=== PATIENT | male | born 1960 | race Caucasian/White ===

== ENCOUNTER 2023-05-31 09:04 | Inpatient (IN) | payer MEDICAID ==
[2023-05-31] VITALS (31 sets, daily range): BP systolic 83–112; BP diastolic 42–91; PULSE 65–118; RESP 0–25; TEMP 97.6–98.3
[~2023-05-31] VITALS: Ht 172.7 cm; Wt 81.2 kg
[2023-05-31 09:43] LABS: BASOPHILS % 0.5 % (0.0-2.0); DIFFERENTIAL COMMENT 0; EOSINOPHILS % 0.3 % (0.0-5.0); LYMPHOCYTES % 35.1 % (20.0-50.0); MEAN CORPUSCULAR HEMOGLOBIN 30.7 pg (28.0-32.0); MEAN CORPUSCULAR HGB CONC 34.8 g/dL (31.0-37.0); MEAN CORPUSCULAR VOLUME 88.2 fL (80.0-94.0); MEAN PLATELET VOLUME 8.6 fl (7.4-10.4); MONOCYTES % 7.1 % (2.0-8.0); PLATELET 268 x1000/uL (130-400); RED CELL DISTRIBUTION WIDTH 15.8 % (11.6-14.6); WHITE BLOOD COUNT 9.3 x1000/uL (4.5-11.0)
[2023-05-31 09:46] LABS: INR 1.1; PROTHROMBIN TIME 12.6 sec (9.6-11.0)
[2023-05-31] MEDS: SODIUM CHLORIDE 0.9% 1000ML BAG (SEPSIS BOLUS) IV ONE (09:51)
[2023-05-31] MEDS: VANCOMYCIN 1G PREMIX 200 ML IV ONE (09:56)
[2023-05-31] MEDS: PIPERACILLIN/TAZO 3.375G/50ML 50 ML IV ONE (09:56)
[2023-05-31 10:04] LABS: ALANINE AMINOTRANSFERASE 13 IU/L (10-49); ALBUMIN 2.4 g/dL (3.2-4.8); ASPARTATE AMINOTRANSFERASE 21 IU/L (<34); BILIRUBIN TOTAL 0.2 mg/dL (0.1-1.0); CARBON DIOXIDE 21 mEq/L (21-32); CHLORIDE 109 mEq/L (98-107); CREATININE 1.8 mg/dL (0.6-1.3); POTASSIUM 3.9 mEq/L (3.5-5.1); PROTEIN TOTAL 4.9 g/dL (6.0-8.3); SODIUM 140 mEq/L (136-145); TROPONIN I HIGH SENSITIVITY 9 ng/L (3.0-53); UREA NITROGEN BLOOD 35 mg/dL (9-23)
[2023-05-31 10:10] LABS: LACTIC ACID 6.7 mmol/L (0.4-2.0)
[2023-05-31 10:11] LABS: GLUCOSE 419 mg/dL (70-105)
[2023-05-31 10:22] LABS: HEMOGLOBIN. 4.9 g/dL (14.0-18.0)
[2023-05-31 10:23] LABS: HEMATOCRIT. 14.1 % (42.0-52.0)
[2023-05-31] MEDS: NOREPINEPHRINE 8MG/250ML PMX 250 ML IV STA ×2 (10:30→12:59)
[2023-05-31] MEDS: ONDANSETRON HCL 4MG/2ML INJ IV ONE (11:43)
[2023-05-31] MEDS: ACETAMINOPHEN 325MG TABLET PO ONE (11:44)
[2023-05-31] MEDS: OXYCODONE HCL/ACETAMINOPHEN 5/325MG TABLET PO ONE (12:14)
[2023-05-31] MEDS ORDERED: AMIODARONE HCL 150 MG in DEXT 5% WATER 100 ML IV ONE (12:30)
[2023-05-31] MEDS: AMIODARONE 150MG/100ML PREMIX 100 ML IV NR (12:45)
[2023-05-31] MEDS ORDERED: PHENYLEPHRINE 50MG/250ML PMX 250 ML IV PRN (13:15)
[2023-05-31] MEDS ORDERED: IPRATROPIUM/ALBUTEROL 0.5-3(2.5)MG/3ML NEB HHN PRN (15:45)
[2023-05-31] MEDS ORDERED: NOREPINEPHRINE 8MG/250ML PMX 250 ML IV ONE (15:59)
[2023-05-31] MEDS: IOHEXOL-350 100 ML BOTTLE ONE (17:19)
[2023-05-31] MEDS ORDERED: NALOXONE HCL 0.4MG/ML VIAL IV PRN (18:00)
[2023-05-31] MEDS: PANTOPRAZOLE SODIUM 40 MG/VIAL IV SCH (18:56)
[2023-05-31] MEDS: HYDROCODONE/ACETAMINOPHEN 10/325MG TABLET PO PRN (18:57)
[2023-05-31] MEDS: ONDANSETRON HCL 4MG/2ML INJ IV PRN (19:23)
[2023-05-31] MEDS: MORPHINE SULFATE 2 MG/ML CPJ (NOT FOR IM USE) IV NR (19:24)
[2023-05-31 21:08] LABS: DIFFERENTIAL COMMENT 1; HEMATOCRIT. 28.3 % (42.0-52.0); HEMOGLOBIN. 9.3 g/dL (14.0-18.0); MEAN CORPUSCULAR HEMOGLOBIN 29.7 pg (28.0-32.0); MEAN CORPUSCULAR HGB CONC 32.9 g/dL (31.0-37.0); MEAN CORPUSCULAR VOLUME 90.3 fL (80.0-94.0); MEAN PLATELET VOLUME 9.8 fl (7.4-10.4); PLATELET 168 x1000/uL (130-400); RED BLOOD CELL COUNT 3.14 mill/uL (4.7-6.1); RED CELL DISTRIBUTION WIDTH 15.7 % (11.6-14.6); WHITE BLOOD COUNT 25.3 x1000/uL (4.5-11.0)
[2023-05-31] MEDS: PHENYLEPHRINE 50MG/250ML PMX 250 ML IV PRN (21:24)
[2023-05-31 21:36] LABS: PLATELET ESTIMATE NORMAL
[2023-05-31] MEDS ORDERED: VASOPRESSIN 20 UNIT in SODIUM CHLORIDE 0.9% 99 ML IV SCH (21:45)
[2023-05-31] MEDS: PIPERACILLIN/TAZO 3.375G/50ML 50 ML IV SCH (22:00)
[2023-05-31] MEDS: BLOOD SUGAR DIAGNOSTIC STRIP TEST SCH (22:41)
[2023-05-31] MEDS: SODIUM CHLORIDE 0.9% 1,000 ML IV SCH (22:42)
[2023-05-31] MEDS: INSULIN LISPRO 100 UNITS/ML SUBCUT NR (22:51)
[2023-05-31] MEDS: INSULIN GLARGINE 100 UNITS/ML SUBCUT SCH (22:51)
[2023-05-31] MEDS: OCTREOTIDE 1,000 MCG in SODIUM CHLORIDE 0.9% 98 ML IV SCH (23:00)
[2023-05-31] MEDS: PANTOPRAZOLE 80 MG in SODIUM CHLORIDE 0.9% 100 ML IV SCH (23:02)
[2023-06-01] VITALS (114 sets, daily range): BP systolic 76–157; BP diastolic 39–92; PULSE 67–127; RESP 0–34; TEMP 97.7–99.2
[2023-06-01] MEDS: INSULIN LISPRO 100 UNITS/ML SUBCUT SCH
[2023-06-01 00:06] LABS: BASOPHILS % 0.1 % (0.0-2.0); HEMATOCRIT. 24.2 % (42.0-52.0); HEMOGLOBIN. 7.7 g/dL (14.0-18.0); LYMPHOCYTES % 7.3 % (20.0-50.0); MEAN CORPUSCULAR HEMOGLOBIN 28.8 pg (28.0-32.0); MEAN CORPUSCULAR HGB CONC 31.8 g/dL (31.0-37.0); MEAN CORPUSCULAR VOLUME 90.5 fL (80.0-94.0); MEAN PLATELET VOLUME 9.7 fl (7.4-10.4); MONOCYTES % 4.4 % (2.0-8.0); NEUTROPHILS % 88.2 % (40.0-76.0); PLATELET 178 x1000/uL (130-400); RED BLOOD CELL COUNT 2.68 mill/uL (4.7-6.1); RED CELL DISTRIBUTION WIDTH 15.3 % (11.6-14.6); WHITE BLOOD COUNT 20.1 x1000/uL (4.5-11.0)
[2023-06-01 00:21] LABS: ALANINE AMINOTRANSFERASE 24 IU/L (10-49); ALBUMIN 2.4 g/dL (3.2-4.8); ASPARTATE AMINOTRANSFERASE 43 IU/L (<34); BILIRUBIN TOTAL 0.5 mg/dL (0.1-1.0); CALCIUM 6.5 mg/dL (8.7-10.4); CARBON DIOXIDE 17 mEq/L (21-32); CHLORIDE 110 mEq/L (98-107); CREATININE 2.2 mg/dL (0.6-1.3); PROTEIN TOTAL 4.7 g/dL (6.0-8.3); SODIUM 138 mEq/L (136-145); UREA NITROGEN BLOOD 51 mg/dL (9-23)
[2023-06-01 00:33] LABS: POTASSIUM 5.9 mEq/L (3.5-5.1)
[2023-06-01 00:35] LABS: GLUCOSE 594 mg/dL (70-105)
[2023-06-01] MEDS: SODIUM BICARBONATE 8.4% 1 MEQ/ML 50ML SYR IV NR (01:29)
[2023-06-01] MEDS: INSULIN REGULAR (HUMULIN R) 300UNITS/3ML VIAL IV NR (01:33)
[2023-06-01] MEDS: INSULIN LISPRO 100 UNITS/ML SUBCUT NR (01:33)
[2023-06-01] MEDS: MORPHINE SULFATE 2 MG/ML CPJ (NOT FOR IM USE) IV PRN (03:42)
[2023-06-01 08:46] LABS: HEMATOCRIT 21.4 % (42.0-52.0); HEMOGLOBIN 7.1 g/dL (14.0-18.0)
[2023-06-01] MEDS: VASOPRESSIN 20 UNIT in SODIUM CHLORIDE 0.9% 99 ML IV PRN (09:22)
[2023-06-01 09:27] LABS: LACTIC ACID 3.7 mmol/L (0.4-2.0)
[2023-06-01 09:35] LABS: CREATININE 2.2 mg/dL (0.6-1.3)
[2023-06-01] MEDS: NOREPINEPHRINE 8MG/250ML PMX 250 ML IV ONE (09:53)
[2023-06-01 09:55] LABS: BG BASE EXCESS -7.2 mmol/L (-2.0-2.0); BG CARBOXYHEMOGLOBIN 0.3 % (0.5-1.5); BG DEOXYHEMOGLOBIN 3.1 % (0.0-5.0); BG FRACTION INSPIRED OXYGEN 21; BG HCO3 ACT 17.5 mmol/L (22.0-26.0); BG METHEMOGLOBIN 0.7 % (0.0-1.5); BG OXYGEN SATURATION 96.9 % (92.0-98.5); BG OXYHEMOGLOBIN 95.9 % (94.0-97.0); BG PCO2 31.7 mmHg (35.0-45.0); BG PH 7.361 (7.350-7.450); BG PO2 107.9 mmHg (75.0-100.0); BG SAMPLE SITE RIGHT RADIAL; BG TOTAL HEMOGLOBIN 6.5 g/dL (12.0-18.0); BG VENT MODE ROOM AIR
[2023-06-01 09:56] LABS: CALCIUM 5.9 mg/dL (8.7-10.4)
[2023-06-01] MEDS: SODIUM CHLORIDE 0.9% 500 ML IV ONE (11:14)
[2023-06-01] MEDS: AMIODARONE 150MG/100ML PREMIX 100 ML IV NR (12:00)
[2023-06-01] MEDS ORDERED: SUCRALFATE 1 G/10 ML UDC PO SCH (12:00)
[2023-06-01 12:34] LABS: IRON 27 ug/dL (65-175); TOTAL IRON BINDING CAPACITY 149 ug/dl (250-425)
[2023-06-01 12:36] LABS: HEMATOCRIT 15.8 % (42.0-52.0); HEMOGLOBIN 5.1 g/dL (14.0-18.0)
[2023-06-01] MEDS: CALCIUM GLUCONATE 1GM PREMIX 50 ML IV NR (12:45)
[2023-06-01] MEDS: DIGOXIN 500MCG/2ML AMP IV NR (12:45)
[2023-06-01] MEDS: FENTANYL CITRATE/PF 50MCG/ML 2ML VIAL IV NR (12:54)
[2023-06-01] MEDS: SUCRALFATE 1G TABLET PO SCH (12:55)
[2023-06-01] MEDS: HUMAN PROTHROMBIN COMPLX (PCC) 500 UNITS VIAL IV NR (12:55)
[2023-06-01] MEDS: AMIODARONE HCL 900 MG in DEXT 5% WATER 482 ML IV SCH (12:57)
[2023-06-01 13:08] LABS: FERRITIN 113 ng/mL (22-322); FOLIC ACID (FOLATE) SERUM 9.11 ng/mL (>5.38)
[2023-06-01 13:15] LABS: VITAMIN B12 SERUM > 2000 pg/mL (211-911)
[2023-06-01 16:09] LABS: CLARITY URINE CLOUDY (CLEAR); COLOR URINE YELLOW (YELLOW); GLUCOSE URINE 1+ (NEGATIVE); KETONES URINE NEGATIVE (NEGATIVE); LEUKOCYTE ESTERASE URINE 2+ (NEGATIVE); NITRITE URINE NEGATIVE (NEGATIVE); OCCULT BLOOD URINE 2+ (NEGATIVE); PROTEIN URINE 1+ (NEGATIVE); SPECIFIC GRAVITY URINE 1.037 (1.005-1.030); UROBILINOGEN URINE 0.2 E.U./dL (0.2-1.0)
[2023-06-01 17:18] LABS: *AMPHETAMINES SCREEN URINE NEGATIVE (NEGATIVE); *BARBITURATES SCREEN URINE NEGATIVE (NEGATIVE); *BENZODIAZEPINES SCREEN URINE NEGATIVE (NEGATIVE); *COCAINE SCREEN URINE NEGATIVE (NEGATIVE); CANNABINOID URINE SCREEN NEGATIVE (NEGATIVE); ECSTASY MDMA SCREEN URINE NEGATIVE (NEGATIVE); METHADONE URINE SCREEN Neg (NEGATIVE); OPIATES URINE SCREEN PRESUMPTIVE POSITIVE (NEGATIVE); PHENCYCLIDINE URINE SCREEN NEGATIVE (NEGATIVE)
[2023-06-01 17:58] LABS: BACTERIA URINE 2+
[2023-06-01 17:59] LABS: SQUAMOUS EPITHELIAL CELL URINE FEW /lpf (RARE/1+); YEAST URINE 3+
[2023-06-01 18:00] LABS: WBC URINE 25-50 /hpf (0-2)
[2023-06-01] MEDS: SODIUM CHLORIDE 0.45% 1,000 ML IV SCH (18:01)
[2023-06-01] MEDS: OCTREOTIDE 1,000 MCG in SODIUM CHLORIDE 0.9% 98 ML IV SCH (18:03)
[2023-06-01 18:24] LABS: BG BASE EXCESS -7.9 mmol/L (-2.0-2.0); BG CARBOXYHEMOGLOBIN 0.3 % (0.5-1.5); BG DEOXYHEMOGLOBIN 2.9 % (0.0-5.0); BG FRACTION INSPIRED OXYGEN 21; BG METHEMOGLOBIN 0.2 % (0.0-1.5); BG OXYGEN SATURATION 97.1 % (92.0-98.5); BG OXYHEMOGLOBIN 96.6 % (94.0-97.0); BG PCO2 32.3 mmHg (35.0-45.0); BG PH 7.339 (7.350-7.450); BG PO2 102.1 mmHg (75.0-100.0); BG SAMPLE SITE LEFT RADIAL; BG TOTAL HEMOGLOBIN 9.8 g/dL (12.0-18.0); BG VENT MODE ROOM AIR
[2023-06-01] MEDS ORDERED: ONDANSETRON HCL 4MG/2ML INJ ONE (19:35)
[2023-06-01] MEDS ORDERED: ETOMIDATE 2MG/ML 10ML VIAL IV ONE (19:35)
[2023-06-01] MEDS ORDERED: DEXAMETHASONE 4MG/ML 1ML VIAL ONE (19:35)
[2023-06-01] MEDS ORDERED: EPHEDRINE SULFATE 50MG/ML VIAL ONE (20:05)
[2023-06-02] VITALS (97 sets, daily range): BP systolic 83–163; BP diastolic 36–147; PULSE 67–108; RESP 0–18; TEMP 97.8–98.5
[2023-06-02 01:14] LABS: HEMATOCRIT 28.3 % (42.0-52.0); HEMOGLOBIN 8.4 g/dL (14.0-18.0)
[2023-06-02 09:15] LABS: MEAN CORPUSCULAR HEMOGLOBIN 27.6 pg (28.0-32.0); MEAN CORPUSCULAR HGB CONC 32.7 g/dL (31.0-37.0); MEAN PLATELET VOLUME 9.1 fl (7.4-10.4); PLATELET 110 x1000/uL (130-400); RED BLOOD CELL COUNT 2.42 mill/uL (4.7-6.1); RED CELL DISTRIBUTION WIDTH 17.5 % (11.6-14.6); WHITE BLOOD COUNT 19.8 x1000/uL (4.5-11.0)
[2023-06-02 09:34] LABS: LACTIC ACID 2.2 mmol/L (0.4-2.0)
[2023-06-02 09:36] LABS: CARBON DIOXIDE 16 mEq/L (21-32); CHLORIDE 119 mEq/L (98-107); CREATINE KINASE 44 IU/L (46-171); GLUCOSE 299 mg/dL (70-105); PHOSPHORUS 4.3 mg/dL (2.5-4.9); POTASSIUM 5.1 mEq/L (3.5-5.1); SODIUM 147 mEq/L (136-145); UREA NITROGEN BLOOD 66 mg/dL (9-23)
[2023-06-02 09:56] LABS: DIFFERENTIAL COMMENT 1
[2023-06-02 09:58] LABS: MEAN CORPUSCULAR VOLUME 84.2 fL (80.0-94.0)
[2023-06-02 10:00] LABS: HEMATOCRIT. 20.4 % (42.0-52.0); HEMOGLOBIN. 6.7 g/dL (14.0-18.0)
[2023-06-02 10:24] LABS: ANISOCYTOSIS 1+; PLATELET ESTIMATE DECREASED
[2023-06-02] MEDS: SODIUM BICARBONATE 8.4% 1 MEQ/ML 50ML SYR IV NR (12:27)
[2023-06-02] MEDS: MAGNESIUM 2 G PREMIX 50 ML IV NR (13:44)
[2023-06-02] MEDS: CALCIUM GLUCONATE 1GM PREMIX 50 ML IV NR (13:46)
[2023-06-02 18:44] LABS: HEMATOCRIT 25.3 % (42.0-52.0); HEMOGLOBIN 8.1 g/dL (14.0-18.0)
[2023-06-03] VITALS (99 sets, daily range): BP systolic 90–157; BP diastolic 34–95; PULSE 57–86; RESP 0–21; TEMP 97.8–98.1
[2023-06-03 02:49] LABS: HEMATOCRIT 22.7 % (42.0-52.0); HEMOGLOBIN 7.3 g/dL (14.0-18.0)
[2023-06-03 06:51] LABS: CALCIUM 6.4 mg/dL (8.7-10.4); CARBON DIOXIDE 23 mEq/L (21-32); CHLORIDE 119 mEq/L (98-107); CREATININE 1.9 mg/dL (0.6-1.3); GLUCOSE 210 mg/dL (70-105); PHOSPHORUS 3.8 mg/dL (2.5-4.9); POTASSIUM 4.6 mEq/L (3.5-5.1); SODIUM 147 mEq/L (136-145); UREA NITROGEN BLOOD 54 mg/dL (9-23)
[2023-06-03 06:52] LABS: HEMATOCRIT. 21.4 % (42.0-52.0); HEMOGLOBIN. 7.1 g/dL (14.0-18.0); MEAN CORPUSCULAR HEMOGLOBIN 29.3 pg (28.0-32.0); MEAN CORPUSCULAR HGB CONC 33.1 g/dL (31.0-37.0); MEAN CORPUSCULAR VOLUME 88.4 fL (80.0-94.0); PLATELET 89 x1000/uL (130-400); RED BLOOD CELL COUNT 2.42 mill/uL (4.7-6.1); RED CELL DISTRIBUTION WIDTH 16.4 % (11.6-14.6); WHITE BLOOD COUNT 13.9 x1000/uL (4.5-11.0)
[2023-06-03 06:56] LABS: DIFFERENTIAL COMMENT 1
[2023-06-03 10:05] LABS: ANISOCYTOSIS 1+; NUCLEATED RED BLOOD CELLS 1 /100 WBC; PLATELET ESTIMATE DECREASED
[2023-06-03] MEDS ORDERED: MENTHOL/LANOLIN/CALAMINE/ZN OX OINT 71GM TOP PRN (15:30)
[2023-06-03] MEDS: FLUCONAZOLE 200 MG/100ML BAG 100 ML IV SCH (18:08)
[2023-06-03 20:54] LABS: HEMOGLOBIN 7.8 g/dL (14.0-18.0)
[2023-06-04] VITALS (70 sets, daily range): BP systolic 101–170; BP diastolic 37–118; PULSE 55–92; RESP 7–17; TEMP 97.6–98.6
[2023-06-04 02:52] LABS: BASOPHILS % 0.5 % (0.0-2.0); EOSINOPHILS % 0.5 % (0.0-5.0); HEMATOCRIT. 24.5 % (42.0-52.0); LYMPHOCYTES % 12.7 % (20.0-50.0); MEAN CORPUSCULAR HGB CONC 32.8 g/dL (31.0-37.0); MEAN CORPUSCULAR VOLUME 85.5 fL (80.0-94.0); MEAN PLATELET VOLUME 8.9 fl (7.4-10.4); MONOCYTES % 7.2 % (2.0-8.0); NEUTROPHILS % 79.1 % (40.0-76.0); RED BLOOD CELL COUNT 2.87 mill/uL (4.7-6.1); RED CELL DISTRIBUTION WIDTH 16.6 % (11.6-14.6); WHITE BLOOD COUNT 12.1 x1000/uL (4.5-11.0)
[2023-06-04 03:02] LABS: DIFFERENTIAL COMMENT 1; PLATELET 19 x1000/uL (130-400)
[2023-06-04 05:36] LABS: BASOPHILS % 1.2 % (0.0-2.0); EOSINOPHILS % 1.5 % (0.0-5.0); HEMATOCRIT. 22.3 % (42.0-52.0); HEMOGLOBIN. 7.5 g/dL (14.0-18.0); LYMPHOCYTES % 12.2 % (20.0-50.0); MEAN CORPUSCULAR HEMOGLOBIN 30.4 pg (28.0-32.0); MEAN CORPUSCULAR HGB CONC 33.8 g/dL (31.0-37.0); MEAN CORPUSCULAR VOLUME 89.8 fL (80.0-94.0); MEAN PLATELET VOLUME 9.6 fl (7.4-10.4); MONOCYTES % 7.3 % (2.0-8.0); NEUTROPHILS % 77.8 % (40.0-76.0); PLATELET 94 x1000/uL (130-400); RED BLOOD CELL COUNT 2.48 mill/uL (4.7-6.1); WHITE BLOOD COUNT 13.4 x1000/uL (4.5-11.0)
[2023-06-04 05:55] LABS: CALCIUM 6.9 mg/dL (8.7-10.4); CARBON DIOXIDE 22 mEq/L (21-32); CHLORIDE 116 mEq/L (98-107); CREATININE 1.5 mg/dL (0.6-1.3); PHOSPHORUS 2.4 mg/dL (2.5-4.9); POTASSIUM 3.7 mEq/L (3.5-5.1); SODIUM 144 mEq/L (136-145); UREA NITROGEN BLOOD 44 mg/dL (9-23)
[2023-06-04 06:00] LABS: GLUCOSE 51 mg/dL (70-105)
[2023-06-04] MEDS: DEXTROSE 50% WATER 50ML SYRINGE IV PRN (07:12)
[2023-06-04] MEDS: DEXT 10% WATER 1,000 ML IV SCH (08:31)
[2023-06-04 09:33] LABS: BASOPHILS % 0.2 % (0.0-2.0); EOSINOPHILS % 0.4 % (0.0-5.0); HEMATOCRIT. 25.5 % (42.0-52.0); HEMOGLOBIN. 7.9 g/dL (14.0-18.0); LYMPHOCYTES % 7.5 % (20.0-50.0); MEAN CORPUSCULAR HEMOGLOBIN 29.5 pg (28.0-32.0); MEAN CORPUSCULAR VOLUME 95.4 fL (80.0-94.0); MEAN PLATELET VOLUME 9.1 fl (7.4-10.4); MONOCYTES % 7.8 % (2.0-8.0); NEUTROPHILS % 84.1 % (40.0-76.0); RED BLOOD CELL COUNT 2.68 mill/uL (4.7-6.1); RED CELL DISTRIBUTION WIDTH 17.6 % (11.6-14.6); WHITE BLOOD COUNT 9.3 x1000/uL (4.5-11.0)
[2023-06-04] MEDS: AMIODARONE HCL 200 MG TABLET PO SCH (09:51)
[2023-06-04 09:52] LABS: PLATELET 21 x1000/uL (130-400)
[2023-06-04 09:56] LABS: DIFFERENTIAL COMMENT 1
[2023-06-04 15:03] LABS: HEMATOCRIT 21.3 % (42.0-52.0); HEMOGLOBIN 7.1 g/dL (14.0-18.0); MEAN CORPUSCULAR HEMOGLOBIN 29.6 pg (28.0-32.0); MEAN CORPUSCULAR HGB CONC 33.3 g/dL (31.0-37.0); PLATELET 105 x1000/uL (130-400); RED BLOOD CELL COUNT 2.39 mill/uL (4.7-6.1); RED CELL DISTRIBUTION WIDTH 16.1 % (11.6-14.6)
[2023-06-04] MEDS: METOCLOPRAMIDE HCL 10MG/2ML VIAL IV SCH (15:43)
[2023-06-04] MEDS: SODIUM CHLORIDE 0.45% 1,000 ML IV SCH (17:33)
[2023-06-04] MEDS ORDERED: METOCLOPRAMIDE HCL 10MG/2ML VIAL IV SCH (18:00)
[2023-06-05] VITALS (88 sets, daily range): BP systolic 103–176; BP diastolic 42–125; PULSE 51–97; RESP 0–23; TEMP 97.7–99.4
[2023-06-05 07:11] LABS: BASOPHILS % 0.2 % (0.0-2.0); EOSINOPHILS % 1.4 % (0.0-5.0); HEMATOCRIT. 27.8 % (42.0-52.0); HEMOGLOBIN. 9.4 g/dL (14.0-18.0); LYMPHOCYTES % 8.1 % (20.0-50.0); MEAN CORPUSCULAR HEMOGLOBIN 30.3 pg (28.0-32.0); MEAN CORPUSCULAR VOLUME 89.3 fL (80.0-94.0); MEAN PLATELET VOLUME 8.7 fl (7.4-10.4); MONOCYTES % 8.1 % (2.0-8.0); NEUTROPHILS % 82.2 % (40.0-76.0); PLATELET 118 x1000/uL (130-400); RED BLOOD CELL COUNT 3.11 mill/uL (4.7-6.1); RED CELL DISTRIBUTION WIDTH 15.5 % (11.6-14.6); WHITE BLOOD COUNT 9.5 x1000/uL (4.5-11.0)
[2023-06-05 07:23] LABS: PROTHROMBIN TIME 11.4 sec (9.6-11.0)
[2023-06-05 07:32] LABS: CALCIUM 6.6 mg/dL (8.7-10.4); CARBON DIOXIDE 24 mEq/L (21-32); CHLORIDE 113 mEq/L (98-107); CREATININE 1.3 mg/dL (0.6-1.3); GLUCOSE 94 mg/dL (70-105); PHOSPHORUS 2.6 mg/dL (2.5-4.9); POTASSIUM 3.7 mEq/L (3.5-5.1); SODIUM 142 mEq/L (136-145); UREA NITROGEN BLOOD 21 mg/dL (9-23)
[2023-06-05] MEDS ORDERED: SIMETHICONE 40 MG/0.6 ML 15ML ONE (09:46)
[2023-06-05] MEDS ORDERED: PROPOFOL 200MG/20ML VIAL IV ONE (09:54)
[2023-06-05] MEDS ORDERED: GLYCOPYRROLATE 0.2 MG/ML 2ML VIAL ONE (09:57)
[2023-06-05] MEDS: CALCIUM GLUCONATE 1GM PREMIX 50 ML IV NR (12:15)
[2023-06-05] MEDS: MAGNESIUM 2 G PREMIX 50 ML IV ONE (12:15)
[2023-06-05 13:15] LABS: HEMATOCRIT 28.3 % (42.0-52.0); HEMOGLOBIN 9.6 g/dL (14.0-18.0)
[2023-06-05] MEDS ORDERED: MORPHINE SULFATE 2 MG/ML CPJ (NOT FOR IM USE) IV PRN (22:15)
[2023-06-05] MEDS: HYDROCODONE/ACETAMINOPHEN 10/325MG TABLET PO PRN (22:31)
[2023-06-06] VITALS: BP 127/55; PULSE 67; RESP 18; TEMP 97.6
[2023-06-06 04:00] VITALS: BP 136/66; PULSE 64; RESP 20; TEMP 98.6
[2023-06-06 07:17] LABS: BASOPHILS % 0.2 % (0.0-2.0); HEMATOCRIT. 29.4 % (42.0-52.0); HEMOGLOBIN. 9.9 g/dL (14.0-18.0); MEAN CORPUSCULAR HEMOGLOBIN 30.2 pg (28.0-32.0); MEAN CORPUSCULAR HGB CONC 33.6 g/dL (31.0-37.0); MEAN CORPUSCULAR VOLUME 89.9 fL (80.0-94.0); MEAN PLATELET VOLUME 8.8 fl (7.4-10.4); MONOCYTES % 9.5 % (2.0-8.0); NEUTROPHILS % 79.3 % (40.0-76.0); PLATELET 138 x1000/uL (130-400); RED BLOOD CELL COUNT 3.27 mill/uL (4.7-6.1); RED CELL DISTRIBUTION WIDTH 15.8 % (11.6-14.6); WHITE BLOOD COUNT 9.1 x1000/uL (4.5-11.0)
[2023-06-06 07:45] LABS: CALCIUM 7.1 mg/dL (8.7-10.4); CARBON DIOXIDE 20 mEq/L (21-32); CHLORIDE 110 mEq/L (98-107); CREATININE 1.3 mg/dL (0.6-1.3); GLUCOSE 211 mg/dL (70-105); PHOSPHORUS 2.3 mg/dL (2.5-4.9); POTASSIUM 3.8 mEq/L (3.5-5.1); SODIUM 138 mEq/L (136-145); UREA NITROGEN BLOOD 16 mg/dL (9-23)
[2023-06-06 08:00] VITALS: BP 120/58; PULSE 74; RESP 20; TEMP 98
[2023-06-06] MEDS ORDERED: OMEP40CA20 MT (11:41)
[2023-06-06] MEDS ORDERED: SUCR1TAB MT (11:41)
[2023-06-06 12:00] VITALS: BP_SYST 120; BP_SYST 138; BP_DIAS 58; BP_DIAS 97; PULSE 74; PULSE 88; RESP 20; TEMP 98; TEMP 98.2
[2023-06-06 12:30] LABS: HEMATOCRIT 29.8 % (42.0-52.0); HEMOGLOBIN 9.9 g/dL (14.0-18.0)
[2023-06-06 14:26] VITALS: BP 138/97; PULSE 88; TEMP 98.2; O2SAT 97
[2023-06-07] MEDS ORDERED: PANTOPRAZOLE SODIUM 40 MG/VIAL IV SCH (07:00)
== END 2023-06-06 16:30 | disposition home or self-care (01) | DRG 720 ==
LOC: ER 09:04 → EDBEDREQSVC 09:48 → EDBEDREQTM 09:48 → EDBEDREQSVC 10:23 → EDBEDREQTM 10:23 → EDBEDREQ 10:23 → MICUSO 17:47 → 8WST 06-05 22:56
PROVIDERS: ADMIT Internal Medicine; ATTEND Internal Medicine
PROC: 30233K1 Transfusion of Nonautologous Frozen Plasma into Peripheral Vein, Percutaneous Approach (ICD-10-PCS; 2023-05-31)
PROC: 30233N1 Transfusion of Nonautologous Red Blood Cells into Peripheral Vein, Percutaneous Approach (ICD-10-PCS; 2023-05-31)
PROC: 0DJ08ZZ Inspection of Upper Intestinal Tract, Via Natural or Artificial Opening Endoscopic (ICD-10-PCS; 2023-06-01)
PROC: 30233R1 Transfusion of Nonautologous Platelets into Peripheral Vein, Percutaneous Approach (ICD-10-PCS; 2023-06-04)
PROC: 0DB68ZX Excision of Stomach, Via Natural or Artificial Opening Endoscopic, Diagnostic (ICD-10-PCS; principal; 2023-06-05)
DX: A41.9 Sepsis, unspecified organism (principal); J96.00 Acute respiratory failure, unspecified whether with hypoxia or hypercapnia; N17.0 Acute kidney failure with tubular necrosis; G93.41 Metabolic encephalopathy; E43 Unspecified severe protein-calorie malnutrition; R65.21 Severe sepsis with septic shock; R57.1 Hypovolemic shock; K25.4 Chronic or unspecified gastric ulcer with hemorrhage; E86.1 Hypovolemia; E87.20 Acidosis, unspecified; E11.22 Type 2 diabetes mellitus with diabetic chronic kidney disease; I48.91 Unspecified atrial fibrillation; E11.65 Type 2 diabetes mellitus with hyperglycemia; E78.5 Hyperlipidemia, unspecified; E87.5 Hyperkalemia; I12.9 Hypertensive chronic kidney disease with stage 1 through stage 4 chronic kidney disease, or unspecified chronic kidney disease; N18.30 Chronic kidney disease, stage 3 unspecified; R57.8 Other shock; D64.9 Anemia, unspecified; Z82.49 Family history of ischemic heart disease and other diseases of the circulatory system; Z79.4 Long term (current) use of insulin; E83.51 Hypocalcemia; Z83.3 Family history of diabetes mellitus; Z68.27 Body mass index [BMI] 27.0-27.9, adult
CPT/HCPCS: 36415; 36600; 71045; 71275; 74174; 78278; 80048; 80053; 80305; 81003; 82330; 82375; 82550; 82607; 82728; 82746; 82805; 82962; 83036; 83540; 83550; 83605; 83735; 84100; 84145; 84484; 85014; 85018; 85025; 85027; 85044; 86850; 86900; 86920; 86927; 87106; 88305; 93005; 93306; 93970; 99291; A6261; A9560; C9113; C9132; J0282; J0610; J1100; J1160; J1450; J1815; J2270; J2354; J2370; J2405; J2543; J2704; J2765; J3010; J3370; J3475; J3490; J7030; J7050; J7060; P9016; P9017; P9034; Q9967